=== PATIENT | female | born 1995 | race Caucasian/White ===

== ENCOUNTER 2016-11-14 15:28 | Emergency (ER) | payer OTHER ==
[~2016-11-14] VITALS: Ht 160 cm; Wt 60.0 kg
[2016-11-14 15:30] VITALS: BP 125/75; PULSE 78; RESP 15; TEMP 98; O2SAT 98
--- NOTE | 2016-11-14 16:10 | PD ---
HPI Chief Complaint: Syncope/Near-Syncope Time Seen by Provider: 15:57 Travel History International Travel<30 days: No Contact w/Intl Traveler<30days: No Traveled to known affect area: No History of Present Illness HPI 21-year-old female complaining of syncope. Patient states that she was taking a shower this afternoon, started feeling palpitation and then pass out. Patient states that she struck her left-sided jaw. Patient denies any headache. Patient denies any visual change. Patient denies any neck pain. Patient denies any chest pain or shortness of breath. Patient denies abdominal pain. Patient denies any back pain. Patient denies any focal weakness or numbness of extremity. Patient denies any history of syncope. Patient denies any history of seizure. Patient denies any alcohol or drug abuse. Patient states that she only drank water earlier today. Patient has not eaten anything all day today. PFSH Past Medical History ?: Not LMP: 11/13/16 Social History Tobacco Use: No Review of Systems General / Constitutional: No: Fever Eyes: No: Visual changes HENT: No: Headaches Cardiovascular: Positive: Palpitations, No: Chest Pain or Discomfort Respiratory: No: Shortness of Breath Gastrointestinal: No: Abdominal Pain Genitourinary: No: Dysuria Musculoskeletal: No: Pain Skin: No Rash Neurologic: Positive: Syncope, No: Weakness Psychiatric: No: Depression Endocrine: No: Polydipsia Hematologic/Lymphatic: No: Easy Bruising Physical Exam Narrative GENERAL: Well-nourished, well-developed patient. SKIN: Focused skin assessment warm/dry. HEAD: Normocephalic. EYES: No scleral icterus. No injection or drainage. Pupils 3 mm equal reactive. NECK: Supple, trachea midline. No JVD or lymphadenopathy. CARDIOVASCULAR: Regular rate and rhythm without murmurs, gallops, or rubs. RESPIRATORY: Breath sounds equal bilaterally. No accessory muscle use. GASTROINTESTINAL: Abdomen soft, non-tender, nondistended. MUSCULOSKELETAL: No cyanosis, or edema. BACK: Nontender without obvious deformity. No CVA tenderness. Neurologic exam: Patient's awake alert oriented 3. No obvious focal neurological deficit. Data Data Last Documented VS Vital Signs Date Time Temp Pulse Resp B/P (MAP) Pulse Ox O2 Delivery O2 Flow Rate FiO2 11/14/16 16:37 11/14/16 15:47 16 98 Room Air 11/14/16 15:30 98.0 78 Orders Orders Electrocardiogram (11/14/16 16:04) Blood Glucose (11/14/16 16:04) [facility] Medical Decision Making Medical Screen Exam Complete: Yes Emergency Medical Condition: Yes Interpretation(s) EKG shows sinus rhythm nonspecific ST-T wave change. Accu-Chek blood sugar 115. Differential Diagnosis Differential diagnosis including vasovagal reaction, hypoglycemia, dehydration, arrhythmia, TIA, CVA Narrative Course 21-year-old female with syncope. Patient has not eaten all day today. Patient drank some water earlier today. Accu-Chek blood sugar 115. Diagnosis Primary Impression: Syncope Qualified Codes: R55 - Syncope and collapse Patient Instructions: General Instructions Additional Instructions: Advised patient to eat balanced diet. Encouraged by mouth fluid. 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 Return if persistent problem. Med/Other Pt SpecificInfo: No Meds Exist/No RX given Disposition: 01 DISCHARGE HOME Condition: Stable Joseph Torres MD Nov 14, 2016 16:10
--- NOTE | 2016-11-14 17:10 | EKG ---
Date Performed: 11/14/2016 Time Performed: 16:09:19 PTAGE: 21 years EKG: Sinus rhythm NORMAL ECG NO PREVIOUS TRACING DOCTOR: Anthony Mitchell Interpretating Date/Time 11/14/2016 17:08:36
== END 2016-11-14 16:36 | disposition home or self-care (01) ==
LOC: NEPD 15:28
DX: R55 Syncope and collapse (principal)
CPT/HCPCS: 93005; 99283